=== PATIENT | female | born 1965 | race Caucasian/White ===

== ENCOUNTER → 2016-11-04 | Day surgery (SDC) | payer BC ==
[~2016-11-04] MED LIST: Acetaminophen TAB* 325 MG PO PRN; Buffered Lidocaine 1% SYR 3ML* 3 ML/SYR SYRINGE INTRADERM ONE; Buffered Lidocaine 1% SYR 3ML* 3 ML/SYR SYRINGE ONE; Bupivacaine 0.5% SDV PF* 30 ML VIAL ONE; Chloroprocaine 2%* 20 ML VIAL ONE; Dexamethasone IV* 4 MG/ML 1 ML (4 MG) ONE; DiMENhydriNATE IV* 50 MG/ML VIAL IV PUSH PRN; Famotidine IV* 10 MG/ML 2 ML (20 mg) ONE; HYDROmorphone INJ* 1 MG/ML CARPUJECT SYRINGE IV PRN; Ketorolac INJ* 30 MG/ML 1 ML VIAL ONE; Midazolam* 1 MG/ML 2 ML VIAL (2 MG) ONE; Ondansetron INJ* 2 MG/ML VIAL IV PRN; ceFAZolin 2 GM PREMIX (*) 2 GM/50 ML BAG IVPB ONE; fentaNYL* 50 MCG/ML 2 ML VIAL (100 MCG VIAL) ONE; oxyCODONE/Acetamin 5/325 MG* TAB PO PRN
[2016-11-04 09:07] LABS: Manual Entry Verification DOM0004; UR Preg Internal Control QC Line Present
[2016-11-04 13:09] VITALS: BP 107/62
--- NOTE | 2016-11-05 05:54 | OP ---
DATE OF OPERATION: 11/04/16 - SDS DATE OF : 69 ATTENDING SURGEON: Duane Solis MD ENGRAVER STEEL PLATE: Yumiko Tavera PA-C ANESTHESIOLOGIST: Dr. Prieto ANESTHESIA: Spinal PRE-OP DIAGNOSIS: Multiloculated ganglion cyst, left great toe plantar aspect, and FHL tendon proximally. POST-OP DIAGNOSIS: Multiloculated ganglion cyst, left great toe plantar aspect , and FHL tendon proximally. OPERATIVE PROCEDURE: Excision ganglion cyst, plantar aspect great toe and plantar arch. DESCRIPTION OF PROCEDURE: The patient was taken to the operating room, prone positioning was used with a thigh tourniquet applied. We made a Z-shaped incision on the plantar aspect of the great toe. We reflected the skin edges to allow full visualization of the FHL tendon sheath all the way from the MTP joint flexor crease to the tip of the toe. There was a fleshy, rubbery consistency to the cyst, which extended along the lateral aspect of this wound and then crossing across the tuft to the great toe. This was filled with thick gelatinous clear fluid consistent with a ganglion cyst. This cyst was then removed and we took care to preserve the des of the FHL tendon. Approximately 3 cm incision was made where we saw cystic involvement on the MRI in this area. The FHL tendon was identified and noted to have ganglion cyst involvement along the sheath. This was excised with the Metzenbaum scissors. This was sent as a different specimen. We then thoroughly irrigated both wounds , closing with some Vicryl and interrupted nylon sutures and a compression dressing applied. [id number]/[facility] #: [id number] [facility]
== END | disposition home or self-care (01) ==
LOC: OR 08:41
PROVIDERS: ATTEND Orthopaedic Surgery
DX: M67.472 Ganglion, left ankle and foot (principal); J45.909 Unspecified asthma, uncomplicated; Z87.891 Personal history of nicotine dependence
CPT/HCPCS: 81025; 87070; 87073; 87116; 87205; 87206; 88304; J0690; J1100; J1885; J2250; J2400; J3010

== ENCOUNTER 2018-01-15 08:34 | Day surgery (SDC) | payer BC ==
[~2018-01-15 08:34] MED LIST changes: -Acetaminophen TAB* 325 MG PO PRN; +Buffered Lidocaine 0.9% SYRIN* 5 ML/SYR SYRINGE INTRADERM ONE; -Buffered Lidocaine 1% SYR 3ML* 3 ML/SYR SYRINGE INTRADERM ONE; -Buffered Lidocaine 1% SYR 3ML* 3 ML/SYR SYRINGE ONE; -Bupivacaine 0.5% SDV PF* 30 ML VIAL ONE; -Chloroprocaine 2%* 20 ML VIAL ONE; +Dexamethasone IV* 4 MG/ML 1 ML (4 MG) IV SLOW PU ONE; -Dexamethasone IV* 4 MG/ML 1 ML (4 MG) ONE; -DiMENhydriNATE IV* 50 MG/ML VIAL IV PUSH PRN; +Famotidine IV* 10 MG/ML 2 ML (20 mg) IV ONE; -Famotidine IV* 10 MG/ML 2 ML (20 mg) ONE; -HYDROmorphone INJ* 1 MG/ML CARPUJECT SYRINGE IV PRN; -Ketorolac INJ* 30 MG/ML 1 ML VIAL ONE; -Midazolam* 1 MG/ML 2 ML VIAL (2 MG) ONE; -Ondansetron INJ* 2 MG/ML VIAL IV PRN; -ceFAZolin 2 GM PREMIX (*) 2 GM/50 ML BAG IVPB ONE; -fentaNYL* 50 MCG/ML 2 ML VIAL (100 MCG VIAL) ONE; -oxyCODONE/Acetamin 5/325 MG* TAB PO PRN
[2018-01-15] MEDS ORDERED: Dexamethasone IV* 4 MG/ML 1 ML (4 MG) ONE (08:37)
[2018-01-15] MEDS ORDERED: Famotidine IV* 10 MG/ML 2 ML (20 mg) ONE (08:37)
[2018-01-15] MEDS ORDERED: ceFAZolin 2 GM PREMIX (*) 2 GM/50 ML BAG IVPB ONE (08:38)
[2018-01-15] MEDS ORDERED: Midazolam* 1 MG/ML 5 ML VIAL (5 MG) ONE (11:32)
[2018-01-15] MEDS ORDERED: fentaNYL* 50 MCG/ML 2 ML VIAL (100 MCG VIAL) ONE (11:32)
[2018-01-15] MEDS ORDERED: Lidocaine 2% PF * 5 ML VIAL ONE (11:37)
[2018-01-15] MEDS ORDERED: Propofol* 10 MG/ML 20 ML BTL IV PUSH ONE (11:37)
[2018-01-15] MEDS ORDERED: Ondansetron INJ* 2 MG/ML VIAL ONE (12:04)
[2018-01-15] MEDS ORDERED: Naloxone* 0.4 MG/ML 1 ML VIAL IV PRN (12:16)
[2018-01-15] MEDS ORDERED: oxyCODONE/Acetamin 5/325 MG* TAB PO PRN (12:16)
[2018-01-15] MEDS ORDERED: DiMENhydriNATE IV* 50 MG/ML VIAL IV PUSH PRN (12:16)
[2018-01-15] MEDS ORDERED: fentaNYL* 50 MCG/ML 2 ML VIAL (100 MCG VIAL) IV PRN (12:16)
[2018-01-15] MEDS ORDERED: Ketorolac INJ* 30 MG/ML 1 ML VIAL IV PRN (12:16)
[2018-01-15] MEDS ORDERED: HYDROcodone/ACETAMIN 5-325 MG* 1 TAB PO PRN (12:16)
[2018-01-15] MEDS ORDERED: Ketorolac INJ* 30 MG/ML 1 ML VIAL ONE (12:32)
--- NOTE | 2018-01-15 12:41 | OP ---
Operative Report - Blank - Operative Report Date of Operation: 01/15/18 Note: PATIENT: Kaur Wild DATE OF : 69 DATE OF SURGERY: 01/15/18 SURGEON: Pantera Mckeon MD LACTATION COORDINATOR: BONNY Ortiz, whos assistance was necessary for positioning, retraction, help with instrumentation, and closure. ANESTHESIOLOGIST: Mitchel Ford MD PREOPERATIVE DIAGNOSIS: Left hallux tendon sheath ganglion with draining sinus tract POSTOPERATIVE DIAGNOSIS: Left hallux tendon sheath ganglion with draining sinus tract OPERATION: Left great toe excision of tendon sheath lesion and sinus tract ANESTHESIA: MAC IMPLANTS: none TOURNIQUET TIME: Less than 30 minutes with an ankle Esmarch tourniquet SPECIMENS: Sinus tract to pathology ESTIMATED BLOOD LOSS: minimal COMPLICATIONS: none STATUS: Stable from the operating room to the recovery room and then home. INDICATIONS FOR PROCEDURE: Kaur has a left hallux flexor tendon sheath ganglion and developed a chronic draining sinus tract after an aspiration. Both operative and non operative treatment alternatives were reviewed. Further, the nature and risks of surgery were reviewed in careful detail, in the office as well as the pre-operative holding area. Our discussions regarding the risks of surgery included, but were not limited to, infection, wound problems, nerve injury, neuroma, RSD, persistent symptoms, blood clot, recurrence and need for further surgery, failure of the surgery, and even the remote chance of catastrophic complication , including loss of limb. DESCRIPTION OF PROCEDURE: The patient was seen in the preoperative holding unit and informed written consent was obtained. The appropriate extremity was marked. The patient was then brought to the operating room and carefully positioned on the operating room table. Anesthesia was induced. All bony prominences were padded with great care. A chlorhexidine based pre-scrub was performed followed by a chloraprep prep and drape in standard sterile fashion. A surgical safety pause was then conducted in which we confirmed the appropriate patient, extremity, planned procedure, availability of equipment, indication and administration of prophylactic antibiotics, and DVT prophylaxis in the form of a compression boot on the non-surgical extremity. We began with Esmarch exsanguination of the limb and placement of an ankle Esmarch tourniquet. An ellipsoid incision was made at the lateral hallux to excise the sinus tract. This was sent to pathology. Blunt dissection was then used to trace the sinus tract down to the flexor tendon sheath. This was sharply excised and the stalk was cauterized. I then utilized blunt dissection to explore and make sure there was no more remaining ganglion cyst and none was visualized. I then mobilized tissue flaps to prepare the skin for closure. The tourniquet was released and the hallux quickly pinked-up with jain of capillary refill, and there was no pulsatile bleeding. Hemostasis was obtained and the wound was copiously irrigated and then closed in layers meticulously utilizing 3-0 Monocryl and 3-0 nylon for the skin. A sterile dressing was then applied. The patient was then awakened from anesthesia and transferred to the recovery room in stable condition. There were no complications. All needle and sponge counts were correct at the end of the case. ATTESTATION: I attest I was present and scrubbed and performed the critical portions of the procedure myself. POSTOPERATIVE PLAN: She will follow-up in 2 weeks for likely suture removal.
[2018-01-15 13:12] VITALS: BP 96/52
== END 2018-01-15 13:12 | disposition home or self-care (01) ==
LOC: OR 08:34
PROVIDERS: ATTEND Orthopaedic Surgery
DX: M67.472 Ganglion, left ankle and foot (principal); M25.372 Other instability, left ankle; J45.909 Unspecified asthma, uncomplicated
CPT/HCPCS: 81025; 88304; J0690; J1100; J1885; J2250; J2405; J2704; J3010

== ENCOUNTER 2019-01-01 05:59 | Day surgery (SDC) | payer BC, OTHER ==
[~2019-01-01 05:59] MED LIST changes: -Buffered Lidocaine 0.9% SYRIN* 5 ML/SYR SYRINGE INTRADERM ONE; +Buffered Lidocaine 1% SYRIN* 1 ML/SYRINGE INTRADERM ONE; -Dexamethasone IV* 4 MG/ML 1 ML (4 MG) IV SLOW PU ONE; -Famotidine IV* 10 MG/ML 2 ML (20 mg) IV ONE
[2019-01-01] MEDS ORDERED: Sodium Citrate/Citric Acid* 15 ML UDC PO ONE (06:00)
[2019-01-01] MEDS ORDERED: Lactated Ringers 1000 ML Bag* 1,000 ML IV SCH (06:00)
[2019-01-01] MEDS ORDERED: Sodium Citrate/Citric Acid* 15 ML UDC ONE (06:14)
[2019-01-01] MEDS ORDERED: Bupivacaine 0.5% W/EPI SDV* 30 ML VIAL ONE (06:36)
[2019-01-01] MEDS ORDERED: Midazolam* 1 MG/ML 2 ML VIAL (2 MG) ONE (07:25)
[2019-01-01] MEDS ORDERED: fentaNYL* 50 MCG/ML 2 ML VIAL (100 MCG VIAL) ONE (07:25)
[2019-01-01] MEDS ORDERED: Propofol* 10 MG/ML 20 ML BTL ONE (07:26)
[2019-01-01] MEDS ORDERED: Rocuronium* 10 MG/ML VIAL ONE (07:26)
[2019-01-01] MEDS ORDERED: Lidocaine 2% PF * 5 ML VIAL ONE (07:26)
[2019-01-01] MEDS ORDERED: Ketorolac INJ* 30 MG/ML 1 ML VIAL ONE (07:59)
[2019-01-01] MEDS ORDERED: Neostigmine Methylsulfate* 1 MG/ML 10 ML VIAL (1 mg/ml) ONE (07:59)
[2019-01-01] MEDS ORDERED: Glycopyrrolate IV* 0.2 MG/ML 1 ML VIAL ONE (07:59)
[2019-01-01] MEDS ORDERED: Ondansetron INJ* 2 MG/ML VIAL ONE (07:59)
[2019-01-01] MEDS ORDERED: Dexamethasone IV* 4 MG/ML 1 ML (4 MG) ONE (07:59)
[2019-01-01] MEDS ORDERED: Naloxone* 0.4 MG/ML 1 ML VIAL IV PRN (08:22)
[2019-01-01] MEDS ORDERED: fentaNYL* 50 MCG/ML 2 ML VIAL (100 MCG VIAL) IV PRN (08:22)
[2019-01-01] MEDS ORDERED: DiMENhydriNATE IV* 50 MG/ML VIAL IV PUSH PRN (08:22)
[2019-01-01 09:49] VITALS: BP 101/69
--- NOTE | 2019-01-01 10:17 | OP ---
OPERATIVE REPORT: DATE OF OPERATION: 01/01/19 DATE OF : 69 SURGEON: Kevin Garcia MD RELASTER: Dr. Duong. PRE-OP DIAGNOSES: 1. Pelvic pain. 2. Endometriosis. 3. Dysfunctional uterine bleeding. POST-OP DIAGNOSES: 1. Pelvic pain. 2. Endometriosis. 3. Dysfunctional uterine bleeding. OPERATIVE PROCEDURES: Laparoscopy, biopsy of peritoneum, cautery of endometriosis, excision of endometrial implant, biopsy of endometrium, and drainage of endometrioma. ESTIMATED BLOOD LOSS: Minimal. SPECIMEN: Includes peritoneum, endometrium and ovary. COMPLICATIONS: None. FINDINGS: On exam under anesthesia, uterus was anteverted, sounded to 8 cm. On laparoscopy, the anterior bladder flap appeared normal. The cul-de-sac contained a dense scar of the right cul-de-sac to the right uterosacral ligament with areas of dense fibrotic endometrium what appeared to be endometrial implants. There were inflammatory changes on the posterior wall of the uterus and a small cyst in the right ovary that was incised and found to have chocolate fluid within it and a dense capsule. Both fallopian tubes appeared normal. The left ovary contained some very small 6 or so endometrial implants on the surface, otherwise appeared normal. Liver surface is smooth and the appendix appeared normal. DESCRIPTION OF PROCEDURE: The patient identified, procedure identified as a laparoscopy and endometrial biopsy. The patient was taken to the operating room , prepped and draped in the usual fashion in the dorsal lithotomy position under general anesthesia. A small single-tooth tenaculum was placed in the anterior lip of the cervix and the Pipelle sounded to 9cm was inserted and small amount of tissue was obtained, passed x2. A ClearView was placed. My small infraumbilical incision was then made and a Veress needle inserted through this. The abdomen was insufflated to 50 mmHg. The Veress needle was removed and a trocar was inserted. Under direction visualization, the above findings were noted. A second incision was made 8 cm lateral on the abdominal wall on the right and on the left and trocars were inserted on both sides under direct visualization. The unipolar cautery was inserted and using this, the peritoneum inflammation was biopsied and cauterized. On the right ovary, the ovary was incised using unipolar cautery and once the capsule of the endometrium was entered, chocolate colored dark fluid was obtained consistent with an endometrioma. This was suction irrigated and this densely adherent cyst wall was biopsied using the laparoscopic biopsy forceps. The right peritoneal area where the implant was, was also biopsied and cauterized and small areas on the left ovary were cauterized where endometrial implant was. As the left ovary appeared for the most part normal and no cyst could be identified, this was not incised at all. Good hemostasis was verified. All instruments were removed from the abdomen. The abdomen was deflated of CO2 and the skin was closed with skin glue. The ClearView was removed from the vagina and the patient returned to the recovery room in stable condition. [id number] #: [id number] [facility]
== END 2019-01-01 10:09 | disposition home or self-care (01) ==
LOC: OR 05:59
PROVIDERS: ATTEND Obstetrics & Gynecology
DX: N80.1 Endometriosis of ovary (principal); N83.201 Unspecified ovarian cyst, right side; N80.3 Endometriosis of pelvic peritoneum; N93.8 Other specified abnormal uterine and vaginal bleeding; R10.2 Pelvic and perineal pain; N94.9 Unspecified condition associated with female genital organs and menstrual cycle
CPT/HCPCS: 81025; 88305; A9270-GY; J1100; J1885; J2250; J2405; J2704; J2710; J3010